=== PATIENT | male | born 1985 | race Caucasian/White ===

== ENCOUNTER 2022-03-07 13:30 | Emergency (ER) | payer OTHER, SELFPAY ==
--- NOTE | 2022-03-07 13:35 | ED.GENADULT ---
HPI - General Adult General Chief complaint: Unspecified Stated complaint: Heat Exposure/Headache Time Seen by Provider: 03/07/22 13:34 Source: patient Mode of arrival: ambulatory Limitations: no limitations History of Present Illness HPI narrative: Mr. Uribe is a 36-year-old male patient presenting to the clinic today with complaints of a headache, chills, body aches, fever, and sinus congestion. States she he reports that he thinks he has heat exposure. He reports that he had a temperature of 101 that began yesterday. Called off work last night due to symptoms and feels dehydrated. He reports that he is not able to keep anything down except for clear Gatorade. Related Data Allergies Allergy/AdvReac Type Severity Reaction Status Date / Time Penicillins Allergy Unknown Dyspnea / Verified 03/07/22 13:48 SOB CEFAZOLIN SODIUM Allergy Unknown Dyspnea / Uncoded 01/14/16 12:10 SOB Review of Systems Review of Systems: Pertinent positives per HPI. Patient denies any fever, chills, rash, headache, visual changes, dizziness, cough, shortness of breath, chest pain, palpitations, nausea, vomiting, diarrhea, constipation, abdominal pain, or any urinary issues. PMFSH Comments At the time of my signature, I reviewed and agree with the nursing past medical, surgical, social, and family history. There is no relevant family history pertinent to the patient complaint. Exam Narrative: General: Well-developed, well nourished, in no apparent distress Head: Normocephalic, atraumatic Eyes: Pupils equally round and reactive to light bilaterally, EOM intact, sclera and conjunctive clear, no discharge, lids normal Ears: TMs intact and clear, ear canals clear, no drainage, grossly hearing normal. Nose: Nares patent, clear nasal discharge, no inflammation, no sinus tenderness. Mouth: Oral pharynx without lesions or masses, good dentition, MM dry Neck: Supple, trachea midline, no enlargement of anterior or posterior cervical nodes, no thyroid masses or goiter palpable. Cardio: Regular rate and rhythm, s1 and s2 normal, no murmur appreciated. Resp: Clear to auscultation bilaterally, no rhonchi, rales, wheezing or rubs Course Course Emergency Course: Portions of this record may have been created with voice recognition software. Level of Care: Express Care Visit Vital Signs Vital signs: Vital signs reviewed Medical Decision Making MDM Narrative Medical decision making narrative: At the time of visit patient is resting comfortably on the exam table. Urinalysis was completed and showed positive bili and protein. Specific gravity is high at greater than 1.030. Mucous membranes are dry. I suspect the patient has mild dehydration. His COVID test was positive in the clinic. Prescription for Paxlovid and Zofran sent to the pharmacy for the patient. Supportive measures were discussed and patient voiced understanding of discharge instructions and agrees to the treatment plan. Differential Diagnosis Differential Diagnosis: URI, COVID, flu, strep, headache, heat exhaustion Discharge Plan Discharge Clinical Impression: Dehydration, COVID-19 Patient Disposition: Home, Self-Care Condition: Stable Instructions: Antibiotic Form, Dehydration (ED), How To Wash Your Hands (ED), Droplet Precautions (ED), COVID-19 (Coronavirus Disease 2019) (ED), How to Recover from COVID-19 at Home (ED) Additional Instructions: Take prescription medications only as prescribed-Zofran and paxlovid as prescribed for nausea/vomiting, Increase fluids and stay well hydrated drink 2 to 3 L/day . Tylenol/motrin for pain/fever Flonase and OTC antihistamines as directed Vicks vapor rub to open sinuses Sinus rinses for congestion Cepacol spray, cough drops, throat lozenges, warm tea with honey/lemon, gargle salt water to soothe throat BRAT diet for diarrhea Clear liquids x 24 hours then advance as tolerated for nausea/vomiting May retur
[2022-03-07 13:38] VITALS: BP 137/86; PULSE 79; RESP 16; TEMP 36.6; O2SAT 100
== END 2022-03-07 14:10 | disposition home or self-care (01) ==
PROVIDERS: Emergency Provider Nurse Practitioner Family
DX: U07.1 COVID-19 (principal); E86.0 Dehydration
CPT/HCPCS: 81003; 87426; 99203; C9803; G0463

== ENCOUNTER 2022-07-27 13:32 | Emergency (ER) | payer OTHER, SELFPAY ==
--- NOTE | 2022-07-27 13:33 | ED.BACK ---
HPI - Back Pain/Injury General Chief Complaint: Back Pain/Injury Stated Complaint: Low Back Pain Time Seen by Provider: 07/27/22 13:33 Source: patient and RN notes reviewed History of Present Illness HPI Narrative: patient is a 37-year-old male who presents to urgent care with complaints of right low back pain radiating to the buttocks and down the right leg. Patient has been taking ibuprofen. States that it started 2 days ago. Patient does not have a history of injury or low back pain. Patient does have a strenuous job. No other acute complaints. No acute distress noted. Patient aware of the plan of care. Some parts of this dictation were generated by voice recognition software and may contain typographical and/or grammatical inaccuracies. Related Data Allergies Allergy/AdvReac Type Severity Reaction Status Date / Time Penicillins Allergy Unknown Dyspnea / Verified 07/27/22 13:54 SOB CEFAZOLIN SODIUM Allergy Unknown Dyspnea / Uncoded 01/14/16 12:10 SOB Review of Systems Review of Systems: CONSTITUTIONAL: Denies fever, chills, or sweats. EYES: Denies visual changes, redness, or discharge. ENT: Denies rhinorrhea, congestion, sore throat, or otalgia. CARDIOVASCULAR: Denies chest pain, palpitations, or edema. RESPIRATORY: Denies cough or dyspnea. GASTROINTESTINAL: Denies abdominal pain, nausea, vomiting, or diarrhea. GENITOURINARY: Denies dysuria or hematuria. SKIN: Denies rash or itching. MUSCULOSKELETAL: Reports of right low back pain radiating down the right leg NEUROLOGIC: Denies headache, numbness, or weakness. All other systems reviewed are negative, except as documented in HPI. PMFSH Comments At the time of my signature, I reviewed and agree with the nursing past medical, surgical, social, and family history. There is no relevant family history pertinent to the patient complaint. Exam Narrative: GENERAL: This is a well-nourished, well-developed patient, in no apparent distress. HEAD: normocephalic, atraumatic. EYES: PERRL. Sclera clear/white. Vision is grossly intact. EARS: External ears normal NOSE: External nose normal with no obvious nasal discharge, nares without redness, no rhinorrhea. THROAT: Mucous membranes moist NECK: Neck supple SKIN: warm, intact with no suspicious lesions or rash, good texture and turgor. NEURO: awake, alert, and oriented to person, place and time. There were no obvious focal neurologic abnormalities. EXTREMITIES: No clubbing, cyanosis, or edema. BACK: mild right lumbar tenderness into the pair for miss. Positive right SLE Course Course Level of Care: Express Care Visit Vital Signs Vital signs: Vital Signs Temperature 98.7 F 07/27/22 13:48 Pulse Rate 90 07/27/22 13:48 Respiratory Rate 16 07/27/22 13:48 Blood Pressure 128/77 07/27/22 13:48 Pulse Oximetry 98 07/27/22 13:48 Temperature 98.7 F 07/27/22 13:48 Pulse Rate 90 07/27/22 13:48 Respiratory Rate 16 07/27/22 13:48 Blood Pressure 128/77 07/27/22 13:48 Pulse Oximetry 98 07/27/22 13:48 reviewed MDM - Back Pain/Injury MDM Narrative Medical decision making narrative: advised patient to continue ibuprofen as needed for pain. Complete the steroid regimen as prescribed. Use the muscle relaxer for muscle spasms. Be aware not to drive or operate heavy machinery while on the muscle relaxers due to drowsiness. Avoid any strenuous activity for the next 3-5 days or until activity as tolerated as normal. Avoid heavy lifting/ pushing / pulling. Follow-up with your PCP within 2-5 days or for worsening symptoms or failure to improve. Differential Diagnosis Differential diagnosis: Likely lumbar radiculopathy, sciatica, strain of lumbar region, renal colic, pyelonephritis and thoracic back pain Critical Care Time Critical Care Time Critical Care Time: No Discharge Plan Discharge Clinical Impression: Sciatica Qualifiers: Laterality: right Qualified Code(s): M54.31 - S
[2022-07-27 13:48] VITALS: BP 128/77; PULSE 90; RESP 16; TEMP 37.1; O2SAT 98
== END 2022-07-27 14:00 | disposition home or self-care (01) ==
PROVIDERS: Emergency Provider Nurse Practitioner Family
DX: M54.31 Sciatica, right side (principal)
CPT/HCPCS: 99213; G0463

== ENCOUNTER 2022-08-17 18:10 | Emergency (ER) | payer OTHER, SELFPAY ==
--- NOTE | ~2022-08-17 | XR_ITS ---
EXAMINATION: XR hand RT min 3V DATE: 08/17/2022 18:32 INDICATION: Right hand injury and pain. TECHNIQUE: 3 views of right hand were obtained. COMPARISON: None. FINDINGS: Bone alignment is normal. No fracture. Joint spaces are normal. IMPRESSION: 1. No fracture. Reviewed, dictated and finalized at location A. R ADJUSTER IMPRESSION: 1. No fracture.
--- NOTE | 2022-08-17 18:13 | ED.UPPEXIN ---
HPI - Extremity Injury (Upper) General Chief Complaint: Extremity Problem,Nontraumatic Stated Complaint: right hand middle knuckle Time Seen by Provider: 08/17/22 18:13 Source: patient and RN notes reviewed History of Present Illness HPI narrative: patient is a 37-year-old male who presents to the Urgent Care with complaints of right hand middle knuckle swelling and pain. 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 Patient states it has always been a larger knuckle but he has never had it x-rayed. Patient states that most recently he has been unable to account consultant things work and has been causing him a lot of pain. Patient takes ibuprofen intermittently as needed. Denies any new injuries. No other acute complaints. Patient is right-hand dominant and does a lot of repetitive motion at his job. No acute distress noted. Patient aware of the plan of care. Some parts of this dictation were generated by voice recognition software and may contain typographical and/or grammatical inaccuracies. Related Data Home Medications Medication Instructions Recorded Confirmed No Home Medications 08/17/22 08/17/22 Allergies Allergy/AdvReac Type Severity Reaction Status Date / Time Penicillins Allergy Unknown Dyspnea / Verified 08/17/22 18:22 SOB CEFAZOLIN SODIUM Allergy Unknown Dyspnea / Uncoded 08/17/22 18:22 SOB Review of Systems Review of Systems: CONSTITUTIONAL: Denies fever, chills, or sweats. EYES: Denies visual changes, redness, or discharge. ENT: Denies rhinorrhea, congestion, sore throat, or otalgia. CARDIOVASCULAR: Denies chest pain, palpitations, or edema. RESPIRATORY: Denies cough or dyspnea. GASTROINTESTINAL: Denies abdominal pain, nausea, vomiting, or diarrhea. GENITOURINARY: Denies dysuria or hematuria. SKIN: Denies rash or itching. MUSCULOSKELETAL: Reports of right hand middle knuckle swelling and pain NEUROLOGIC: Denies headache, numbness, or weakness. All other systems reviewed are negative, except as documented in HPI. PMFSH Comments At the time of my signature, I reviewed and agree with the nursing past medical, surgical, social, and family history. There is no relevant family history pertinent to the patient complaint. Exam Narrative: GENERAL: This is a well-nourished, well-developed patient, in no apparent distress. HEAD: normocephalic, atraumatic. EYES: PERRL. Sclera clear/white. Vision is grossly intact. EARS: External ears normal NOSE: External nose normal with no obvious nasal discharge, nares without redness, no rhinorrhea. THROAT: Mucous membranes moist NECK: Neck supple SKIN: warm, intact with no suspicious lesions or rash, good texture and turgor. NEURO: awake, alert, and oriented to person, place and time. There were no obvious focal neurologic abnormalities. EXTREMITIES: right hand 3rd digit MCP edematous without erythema with [id number] exacerbation of pain upon making a fist or any type of flexion of the right upper extremity. Positive strong right radial pulse with capillary refill less than 2 seconds. Range of motion right upper extremity within normal limits. Course Course Level of Care: Express Care Visit Vital Signs Vital signs: Vital Signs Temperature 98.4 F 08/17/22 18:15 Pulse Rate 64 08/17/22 18:15 Respiratory Rate 16 08/17/22 18:15 Blood Pressure 132/90 08/17/22 18:15 Pulse Oximetry 100 08/17/22 18:15 Oxygen Delivery Room Air 08/17/22 18:15 Temperature 98.4 F 08/17/22 18:23 Pulse Rate 64 08/17/22 18:23 Respiratory Rate 16 08/17/22 18:23 Blood Pressure 132/90 08/17/22 18:23 Pulse Oximetry 100 08/17/22 18:23 Oxygen Delivery Room Air 08/17/22 18:23 Reviewed MDM - Extremity Injury (Upper) MDM Narrative Medical decision making narrative: reviewed x-ray results with the patient. He is aware that x-ray was negative for fracture abnormality. It is likely that you
[2022-08-17 18:15] VITALS: BP 132/90; PULSE 64; RESP 16; TEMP 36.9; O2SAT 100
[2022-08-17 18:23] VITALS: BP 132/90; PULSE 64; RESP 16; TEMP 36.9; O2SAT 100
== END 2022-08-17 18:50 | disposition home or self-care (01) ==
PROVIDERS: Emergency Provider Nurse Practitioner Family; PCP Emergency Medicine
DX: M25.541 Pain in joints of right hand (principal)
CPT/HCPCS: 73130; 99213; G0463

== ENCOUNTER 2023-01-30 09:55 | Emergency (ER) | payer OTHER, SELFPAY ==
--- NOTE | ~2023-01-30 | XR_ITS ---
EXAMINATION: XR foot LT min 3V DATE: 01/30/2023 10:20 INDICATION: Left foot pain TECHNIQUE: Dorsoplantar, lateral, and 2 oblique views of the left foot were obtained. COMPARISON: 01/14/2016 FINDINGS: Bone alignment is normal. There is no fracture. Mild osteoarthritis is again noted at the f irst metatarsophalangeal joint and the talonavicular joint. IMPRESSION: 1. No acute osseous abnormality. Reviewed, dictated and finalized at location A.
[2023-01-30 10:00] VITALS: BP 132/82; PULSE 85; RESP 14; TEMP 36.7; O2SAT 100
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
== END 2023-01-30 10:45 | disposition home or self-care (01) ==
PROVIDERS: Emergency Provider Registered Nurse
DX: S90.32XA Contusion of left foot, initial encounter (principal); S90.122A Contusion of left lesser toe(s) without damage to nail, initial encounter; X50.9XXA Other and unspecified overexertion or strenuous movements or postures, initial encounter; F17.210 Nicotine dependence, cigarettes, uncomplicated; F12.90 Cannabis use, unspecified, uncomplicated
CPT/HCPCS: 73630; 99213; G0463

== ENCOUNTER 2023-05-24 12:56 | Emergency (ER) | payer OTHER, SELFPAY ==
[2023-05-24 13:08] VITALS: BP 129/80; PULSE 63; RESP 16; TEMP 36.6; O2SAT 98
[2023-05-24 13:13] VITALS: BP 112/57; PULSE 63; RESP 20; TEMP 36.8; O2SAT 99
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
== END 2023-05-24 14:09 | disposition home or self-care (01) ==
PROVIDERS: Emergency Provider Nurse Practitioner
DX: K52.9 Noninfective gastroenteritis and colitis, unspecified (principal); F17.210 Nicotine dependence, cigarettes, uncomplicated; F12.90 Cannabis use, unspecified, uncomplicated
CPT/HCPCS: 99211; G0463

== ENCOUNTER 2023-06-11 09:46 | Emergency (ER) | payer OTHER, SELFPAY ==
--- NOTE | ~2023-06-11 | XR_ITS ---
EXAMINATION: XR hand LT min 3V DATE: 06/11/2023 10:16 INDICATION: Left hand injury. Pop in fourth digit. TECHNIQUE: 3 views of left hand were obtained. COMPARISON: None. FINDINGS: Bone alignment is normal. No fracture. Joint spaces are normal. IMPRESSION: 1. No fracture. Reviewed, dictated and finalized at location A. TECHNICAL DIRECTOR IMPRESSION: 1. No fracture.
[2023-06-11 09:52] VITALS: BP 133/78; PULSE 77; RESP 20; TEMP 36.5; O2SAT 98
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
== END 2023-06-11 10:37 | disposition home or self-care (01) ==
PROVIDERS: Emergency Provider Nurse Practitioner
DX: S69.92XA Unspecified injury of left wrist, hand and finger(s), initial encounter (principal); W01.0XXA Fall on same level from slipping, tripping and stumbling without subsequent striking against object, initial encounter; R05.9 Cough, unspecified; F17.210 Nicotine dependence, cigarettes, uncomplicated; F12.90 Cannabis use, unspecified, uncomplicated
CPT/HCPCS: 29130; 73130; 99213; G0463